=== PATIENT | female | born 1970 | race Hispanic/Latino ===

== ENCOUNTER 2018-02-16 13:03 | Emergency (ER) | payer OTHER ==
[~2018-02-16] VITALS: Ht 160 cm; Wt 83.9 kg
[~2018-02-16 13:03] MED LIST: FIORICET 325 MG1 TAB PO; ZOFRAN4 M1 SL
[2018-02-16 13:07] VITALS: BP 134/80
--- NOTE | 2018-02-16 15:13 | ED GENERAL ADULT ---
History of Present Illness General Chief Complaint: Upper Extremity Problem Stated Complaint: R ARM PAIN Source: patient Exam Limitations: no limitations Vital Signs & Intake/Output Vital Signs & Intake/Output ED Intake and Output 02/17 0000 02/16 1200 Intake Total Output Total Balance Patient 185 lb Weight Weight Estimated Measurement Method Allergies Coded Allergies: NO KNOWN ALLERGIES (10/19/11) Reconcile Medications Acetaminophen/Butalbital/Caf (Fioricet 325 MG-50 MG-40 MG) 1 TAB TAB 1 TAB PO Q4P PRN headache do not exceed 6 tablet(s) in 24 hours Ondansetron (Zofran Odt) 4 MG TAB.RAPDIS 1 ODT SL Q6P PRN NAUSEA Triage Note: PT TO ED C/O RIGHT ARM WEAKNESS AND PAIN X 1 WEEK. DENIES OBVIOUS INJURY. HAS NOT TRIED OTC MEDS, DECLINING MEDS IN TRIAGE. Triage Nurses Notes Reviewed? yes Onset: Gradual Duration: day(s): Timing: recent history Injury Environment: home Severity: moderate HPI: 47-year-old female with history of migraines presents emergency department complaining of right arm pain, weakness, numbness in the past few days. Patient states that last night she had numbness to the right side of her face and when she woke up and looked in the mirror her face appeared "puffy". Patient states that previous symptoms have resolved however she still has pain and weakness to the right arm. Patient states that sometimes she will drop objects in the right arm due to this weakness. There is no injury or trauma prior to onset of her symptoms. Patient denies headache, neck pain, chest pain. (Jazmin Nunes) Past History Travel History Traveled to [place] past 21 day No Medical History Any Pertinent Medical History? see below for history Neurological: migraine History of CDIFF: No Surgical History Surgical History: non-contributory Psychosocial History What is your primary language [place] Tobacco Use: Never used ETOH Use: denies use Illicit Drug Use: denies illicit drug use Family History Hx Contributory? No (Jazmin Nunes) Review of Systems Review of Systems Constitutional: Reports: no symptoms. EENTM: Reports: no symptoms. Respiratory: Reports: no symptoms. Cardiovascular: Reports: no symptoms. GI: Reports: no symptoms. Genitourinary: Reports: no symptoms. Musculoskeletal: Reports: see HPI. Skin: Reports: no symptoms. Neurological/Psychological: Reports: see HPI. Hematologic/Endocrine: Reports: no symptoms. Immunologic/Allergic: Reports: no symptoms. All Other Systems: Reviewed and Negative (Jazmin Nunes) Physical Exam Physical Exam General Appearance: well developed/nourished, no apparent distress, alert, awake Head: atraumatic, normal appearance Eyes: Bilateral: normal appearance, PERRL, EOMI. Ears, Nose, Throat: normal pharynx, hearing grossly normal Neck: normal inspection, supple, full range of motion Respiratory: normal breath sounds, no respiratory distress, lungs clear Cardiovascular: regular rate/rhythm Back: normal inspection, normal range of motion Extremities: normal inspection, normal range of motion, TENDERNESS TO ANTERIOR RIGHT SHOULDER WITHOUT DEFORMITY OR SKIN CHANGES Neurologic/Psych: no motor/sensory deficits, awake, alert, oriented x 3, normal mood/affect, director decision support II-XII nml as tested, STRENGTH 5/5 EQUAL BILATERAL UPPER EXTREMITIES Skin: intact, normal color, warm/dry Core Measures ACS in differential dx? No CVA/TIA Diagnosis: No Sepsis Present: No Sepsis Focused Exam Completed? No (Jazmin Nunes) Progress Differential Diagnoses I considered the following diagnoses in my evaluation of the patient: [ICH, or cranial mass/lesion, cervical radiculopathy, degenerative disc disease, CVA/TIA, fracture, muscle strain] Plan of Care: Laboratory Tests 02/16/18 1458: Urine Test Cancelled On physical exam the patient is neurologically intact without focal neurologic deficit. The patient has reproducible pain to right shoulder. Patient states she is worried about a brain tumor as her mother suffered from this when she was the patient's age. Will obtain head CT scan to futher evaluate the patient's paresthesias. I also offered the patient shoulder xrays which she agrees to. Dr. Rodriguez agrees with this plan. While waiting for radiology to bring the patient for xray/CT scan the patient eloped from the ED. No images were taken. Initial ED EKG: none (Jazmin Nunes) Departure Departure Disposition: ER WALKOUT Condition: Stable Clinical Impression Primary Impression: Paresthesias Secondary Impressions: Right shoulder pain Qualifiers: Chronicity: acute Qualified Code: M25.511 - Pain in right shoulder Referrals: Diana Wheatley APRN (PCP/Family) Departure Forms: Customer Survey General Discharge Information (Jazmin Nunes) PA/FARM HELPER Co-Sign Statement Statement: ED Attending supervision documentation- I saw and evaluated the patient. I have also reviewed all the pertinent lab results and diagnostic results. I agree with the findings and the plan of care as documented in the PA's/FARM HELPER's documentation. x I have reviewed the ED Record and agree with the PA's/FARM HELPER's documentation. [] Additions or exceptions (if any) to the PAs/FARM HELPER's note and plan are summarized below: [] (Michael ROSARIO,[place]) Critical Care Note Critical Care Note Critical Care Time: non-applicable (Jazmin Nunes)
== END 2018-02-16 15:16 ==
LOC: ERH 13:03
DX: R20.2 Paresthesia of skin (principal); M25.511 Pain in right shoulder
CPT/HCPCS: 81025